=== PATIENT | male | born 1980 | race Caucasian/White ===

== ENCOUNTER 2017-01-24 11:31 | Emergency (ER) | payer MEDICAID, OTHER ==
[2017-01-24 11:53] VITALS: BP 97/51
--- NOTE | 2017-01-24 12:00 | UC ---
Abdominal Pain Male HPI - HPI Summary HPI Summary: SUDDEN ONSET OF TESTICULAR PAIN AND SWELLING LAST NIGHT. NO CHANGE IN ORIENTATION OF THE TESTICLES. PAIN IS WORSE TODAY. HAS DIFFICULTY URINATING AND HAS SHARP CRAMPY LOWER ABDOMINAL PAIN. NO BM IN PAST 3 DAYS. FEELS CONSTIPATED. DENIES FEVER AT HOME. PAIN IS SO SEVERE HE IS HAVING A HARD TIME STANDING UP STRAIGHT. - History of Current Complaint Chief Complaint: UCAbdominalPain Stated Complaint: ABDOMINAL PAIN Time Seen by Provider: 01/24/17 11:57 Hx Obtained From: Patient Onset/Duration: Sudden Onset, Lasting Hours, Still Present Timing: Constant Severity Initially: Moderate Severity Currently: Moderate Pain Intensity: 8 Pain Scale Used: 0-10 Numeric Location: Suprapubic Character: Sharp Alleviating Factor(s): Nothing - Allergies/Home Medications Allergies/Adverse Reactions: Allergies Allergy/AdvReac Type Severity Reaction Status Date / Time No Known Allergies Allergy Verified 01/24/17 11:53 Home Medications: Home Medications NK [No Home Medications Reported] 01/24/17 [History Confirmed 01/24/17] PMH/Surg Hx/FS Hx/Imm Hx Previously Healthy: Yes - Surgical History Surgical History: Yes Surgery Procedure, Year, and Place: Ear tubes x 4 - Family History Known Family History: Positive: Diabetes - Social History Alcohol Use: None Substance Use Type: None Smoking Status (MU): Heavy Every Day Tobacco Smoker Type: Cigarettes Amount Used/How Often: 3/4 ppd Length of Time of Smoking/Using Tobacco: since age 12 Have You Smoked in the Last Year: Yes Review of Systems Constitutional: Negative Respiratory: Negative Cardiovascular: Negative Gastrointestinal: Abdominal Pain Genitourinary: Dysuria, Other - TESTICULAR PAIN All Other Systems Reviewed And Are Negative: Yes Physical Exam Triage Information Reviewed: Yes Appearance: Well-Nourished, Pain Distress - MOD/SEVERE Vital Signs: Initial Vital Signs Temp 99.7 F 01/24/17 11:47 Pulse 79 01/24/17 11:47 Resp 18 01/24/17 11:47 BP 97/51 01/24/17 11:47 Pulse Ox 100 01/24/17 11:47 Vital Signs Reviewed: Yes Eyes: Positive: Conjunctiva Clear ENT: Positive: Hearing grossly normal Neck: Positive: Supple, Nontender, No Lymphadenopathy Respiratory: Positive: No respiratory distress, No accessory muscle use Cardiovascular: Positive: Pulses Normal Abdomen Description: Positive: Soft Musculoskeletal: Positive: No Edema Neurological: Positive: Alert Psychological: Positive: Age Appropriate Behavior Skin: Negative: rashes UC Physical Exam Vital Signs On Initial Exam: Initial Vitals Temp Pulse Resp BP Pulse Ox 99.7 F 79 18 97/51 100 01/24/17 11:47 01/24/17 11:47 01/24/17 11:47 01/24/17 11:47 01/24/17 11:47 - Genitalia Exam Male Genitalia Cont.: Bilateral: Testicles Descended, Testicles Tender - VERY TENDER POSTERIORLY, Scrotum Without Erythema Abd Pain Male Course/Dx - Course Course Of Treatment: PT IS DOUBLED OVER DUE TO ABDOMINAL PAIN. ADVISED FURTHER EVAL IN ER. PT DECLINES AMBULANCE. PT ALSO WILL NEED EVAL OF TESTICULAR PAIN AND URINARY HESITANCY. - Differential Dx/Clinical Impression Provider Diagnoses: 1. TESTICULAR PAIN. 2. ABDOMINAL PAIN Discharge - Discharge Plan Condition: Stable Disposition: OTHER Discharge Disposition Comment: TO [facility] PR[facility] Patient Education Materials: Testicle Pain (ED), Abdominal Pain (ED) Referrals: Ludwig Carmen MD [Primary Care Provider] - If Needed Additional Instructions: GO DIRECTLY TO THE ER FROM HERE FOR FURTHER EVALUATION.
== END 2017-01-24 12:00 ==
LOC: UCEAST 11:31
DX: N50.819 Testicular pain, unspecified (principal); F17.210 Nicotine dependence, cigarettes, uncomplicated
CPT/HCPCS: 99212; G0463

== ENCOUNTER 2017-01-24 23:45 | Emergency (ER) | payer MEDICAID ==
[2017-01-25] MEDS ORDERED: NS 0.9% 1000 ML* 1,000 ML IV ONE (00:21)
[2017-01-25] MEDS ORDERED: Ondansetron INJ* 2 MG/ML VIAL IV ONE (00:21)
[2017-01-25] MEDS ORDERED: HYDROmorphone INJ* 1 MG/ML CARPUJECT SYRINGE IV ONE (00:21)
[2017-01-25 01:19] LABS: Albumin 4.2 g/dL (3.2-5.2); BUN/Creatinine Ratio 8.5 (8-20); C Reactive Protein 6.22 mg/L (< 5.00); Calcium 9.3 mg/dL (8.6-10.3); EGFR African American 102.9 (>60); Globulin 2.6 g/dL (2-4); Hematocrit 45 % (42-52); Hemoglobin 15.3 g/dl (14.0-18.0); Mean Corpuscular HGB Conc 34 g/dl (31-36); Mean Corpuscular Hemoglobin 30 pg (27-31); Mean Corpuscular Volume 88 fL (80-94); Mean Platelet Volume 7 um3 (7.4-10.4); Potassium 3.7 mmol/L (3.5-5.0); Red Blood Count 5.11 10^6/ul (4.0-5.4); Red Cell Distribution Width 15 % (10.5-15); Total Bilirubin 0.6 mg/dL (0.2-1.0); Total Protein 6.8 g/dL (6.4-8.9); White Blood Count 7.6 10^3/ul (3.5-10.8)
[2017-01-25 03:19] LABS: Urine Bilirubin Negative (Negative); Urine Glucose Negative (Negative); Urine Nitrite Negative (Negative)
[2017-01-25] MEDS ORDERED: Lidocaine 2% VISCOUS* 15 ML UDC PO ONE (03:54)
[2017-01-25] MEDS ORDERED: Al Hydrox/Mg Hydrox/Simet LIQ* 30 ML UDC PO ONE (03:54)
[2017-01-25] MEDS ORDERED: HYDROcodone/ACETAMIN 5-325 MG* 1 TAB PO ONE (04:17)
[2017-01-25] MEDS ORDERED: cefTRIAXone VIAL(*) 1,000 MG VIAL IM ONE (04:17)
[2017-01-25] MEDS ORDERED: DOXYcycline CAP(*) 100 MG PO ONE (04:17)
--- NOTE | 2017-01-25 04:23 | ED ---
Ashkan Bowers Alfonso, scribed for Eleanor Gutiérrez MD on 01/25/17 at 0024 . Abdominal Pain/Male - HPI Summary HPI Summary: This patient is a 36 year old M [facility] [place] female with a chief complaint of abdominal cramping since last night. The patient rates the pain 8/10 in severity. Symptoms aggravated by nothing. Symptoms alleviated by a BM. Patient reports testicular pain (soreness), and constipation (5 days). Patient denies back pain. Tobacco abuse disorder. - History of Current Complaint Chief Complaint: EDUrogenitalProblems Stated Complaint: ABD PAIN/TESTICLE PAIN Hx Obtained From: Patient Onset/Duration: Sudden Onset, Lasting Days, Still Present Timing: Constant Severity Currently: Moderate Pain Intensity: 8 Pain Scale Used: 0-10 Numeric Character: Cramping Aggravating Factor(s): Nothing Alleviating Factor(s): Bowel Movement Associated Signs And Symptoms: Positive: Other - testicular pain (soreness), and constipation (5 days). Patient denies back pain - Allergies/Home Medications Allergies/Adverse Reactions: Allergies Allergy/AdvReac Type Severity Reaction Status Date / Time No Known Allergies Allergy Verified 01/25/17 00:07 PMH/Surg Hx/FS Hx/Imm Hx Opthamlomology History: Denies: Hx Legally Blind EENT History: Denies: Hx Deafness - Surgical History Surgery Procedure, Year, and Place: Ear tubes x 4 Infectious Disease History: No Infectious Disease History: Denies: Traveled Outside the [place] in Last 30 Days - Family History Known Family History: Positive: Diabetes - Social History Alcohol Use: None Substance Use Type: Reports: None Smoking Status (MU): Heavy Every Day Tobacco Smoker Type: Cigarettes Amount Used/How Often: 3/4 ppd Length of Time of Smoking/Using Tobacco: since age 12 Have You Smoked in the Last Year: Yes Review of Systems Positive: Abdominal Pain, Other - constipation Positive: other - testicular pain (soreness) Positive: Other - Negative back pain All Other Systems Reviewed And Are Negative: Yes Physical Exam - Summary Physical Exam Summary: General: Well appearing, no pain distress Skin: Warm, Skin Color Reflects Adequate Perfusion, Dry Eyes: EOMI, JACQUELINE ENT: Pharynx normal, TMs normal Neck: Supple, nontender Respiratory: CTA, breath sounds present, no rhonchi, no wheezes, no rales Cardiovascular: RRR, no murmur, no rub, no gallop Abdomen: Soft, nontender, Non-distended, no guarding, no rebound Pelvis: Right epididymis discomfort. Bowel: Present Musculoskeletal: AYAN, No edema Neuro: Sensory/motor intact, A&Ox3, CN intact 2-12 Psych: Affect/mood appropriate Triage Information Reviewed: Yes Vital Signs On Initial Exam: Initial Vitals Temp Pulse Resp BP Pulse Ox 98.4 F 101 20 155/113 96 01/25/17 00:03 01/25/17 00:03 01/25/17 00:03 01/25/17 00:03 01/25/17 00:03 Vital Signs Reviewed: Yes Diagnostics - Vital Signs Vital Signs Temp Pulse Resp BP Pulse Ox 01/25/17 00:03 98.4 F 101 20 155/113 96 - Laboratory Lab Results: Lab Results 01/25/17 01/25/17 01/25/17 Range/Units 00:48 00:48 00:48 WBC 7.6 (3.5-10.8) 10^3/ul RBC 5.11 (4.0-5.4) 10^6/ul Hgb 15.3 (14.0-18.0) g/dl Hct 45 (42-52) % MCV 88 (80-94) fL MCH 30 (27-31) pg MCHC 34 (31-36) g/dl RDW 15 (10.5-15) % Plt Count 300 (150-450) 10^3/ul MPV 7 L (7.4-10.4) um3 Neut % (Auto) 57.2 (38-83) % Lymph % (Auto) 25.1 (25-47) % [place] % (Auto) 13.1 H (1-9) % Eos % (Auto) 3.3 (0-6) % Baso % (Auto) 1.3 (0-2) % Absolute Neuts (auto) 4.3 (1.5-7.7) 10^3/ul Absolute Lymphs (auto) 1.9 (1.0-4.8) 10^3/ul Absolute Monos (auto) 1.0 H (0-0.8) 10^3/ul Absolute Eos (auto) 0.2 (0-0.6) 10^3/ul Absolute Basos (auto) 0.1 (0-0.2) 10^3/ul Absolute Nucleated RBC 0.01 10^3/ul Nucleated RBC % 0.1 Sodium 133 (133-145) mmol/L Potassium 3.7 (3.5-5.0) mmol/L Chloride 102 (101-111) mmol/L Carbon Dioxide 24 (22-32) mmol/L Anion Gap 7 (2-11) mmol/L BUN 9 (6-24) mg/dL Creatinine 1.06 (0.67-1.17) mg/dL Est GFR ( Amer) 102.9 (>60) Est GFR (Non-Af Amer) 80.0 (>60) BUN/Creatinine Ratio 8.5 (8-20) Glucose 103 H (70-100) mg/dL Lactic Acid 0.9 (0.5-2.0) mmol/L Calcium 9.3 (8.6-10.3) mg/dL Total Bilirubin 0.60 (0.2-1.0) mg/dL AST 19 (13-39) U/L ALT 16 (7-52) U/L Alkaline Phosphatase 51 (34-104) U/L C-Reactive Protein 6.22 H (< 5.00) mg/L Total Protein 6.8 (6.4-8.9) g/dL Albumin 4.2 (3.2-5.2) g/dL Globulin 2.6 (2-4) g/dL Albumin/Globulin Ratio 1.6 (1-3) Lipase 14 (11.0-82.0) U/L Urine Color Urine Appearance Urine pH (5-9) Ur Specific [place] (1.010-1.030) Urine Protein (Negative) Urine Ketones (Negative) Urine Blood (Negative) Urine Nitrate (Negative) Urine Bilirubin (Negative) Urine Urobilinogen (Negative) Ur Leukocyte Esterase (Negative) Urine Glucose (Negative) 01/25/17 Range/Units 03:00 WBC (3.5-10.8) 10^3/ul RBC (4.0-5.4) 10^6/ul Hgb (14.0-18.0) g/dl Hct (42-52) % MCV (80-94) fL MCH (27-31) pg MCHC (31-36) g/dl RDW (10.5-15) % Plt Count (150-450) 10^3/ul MPV (7.4-10.4) um3 Neut % (Auto) (38-83) % Lymph % (Auto) (25-47) % [place] % (Auto) (1-9) % Eos % (Auto) (0-6) % Baso % (Auto) (0-2) % Absolute Neuts (auto) (1.5-7.7) 10^3/ul Absolute Lymphs (auto) (1.0-4.8) 10^3/ul Absolute Monos (auto) (0-0.8) 10^3/ul Absolute Eos (auto) (0-0.6) 10^3/ul Absolute Basos (auto) (0-0.2) 10^3/ul Absolute Nucleated RBC 10^3/ul Nucleated RBC % Sodium (133-145) mmol/L Potassium (3.5-5.0) mmol/L Chloride (101-111) mmol/L Carbon Dioxide (22-32) mmol/L Anion Gap (2-11) mmol/L BUN (6-24) mg/dL Creatinine (0.67-1.17) mg/dL Est GFR ( Amer) (>60) Est GFR (Non-Af Amer) (>60) BUN/Creatinine Ratio (8-20) Glucose (70-100) mg/dL Lactic Acid (0.5-2.0) mmol/L Calcium (8.6-10.3) mg/dL Total Bilirubin (0.2-1.0) mg/dL AST (13-39) U/L ALT (7-52) U/L Alkaline Phosphatase (34-104) U/L C-Reactive Protein (< 5.00) mg/L Total Protein (6.4-8.9) g/dL Albumin (3.2-5.2) g/dL Globulin (2-4) g/dL Albumin/Globulin Ratio (1-3) Lipase (11.0-82.0) U/L Urine Color Yellow Urine Appearance Cloudy Urine pH 6.0 (5-9) Ur Specific [place] 1.009 L (1.010-1.030) Urine Protein Negative (Negative) Urine Ketones Negative (Negative) Urine Blood Negative (Negative) Urine Nitrate Negative (Negative) Urine Bilirubin Negative (Negative) Urine Urobilinogen Negative (Negative) Ur Leukocyte Esterase Negative (Negative) Urine Glucose Negative (Negative) Result Diagrams: 01/25/17 00:48 01/25/17 00:48 Lab Statement: Any lab studies that have been ordered have been reviewed, and results considered in the medical decision making process. - Additional Comments Diagnostic Additional Comments: US scrotum reveals, per radiologist, Right testicle and epididymis are normal and homogeneous without evidence of lesion. There is positive Doppler blood flow to the right testicle. The left testicle and epididymis are normal and homogeneous without evidence of lesion. There is positive Doppler blood flow to the left testicle. Small left hydrocele noted. ED physician has reviewed this radiology report and agrees. Abdominal Pain Fem Course/Dx - Course Course Of Treatment: 36 yo male with left testicular pain after 5 days of constipation. pain started today as non specific pelvic and periumbilical pain he was seen at urgent care and started on a laxative after 2nd bowel movement pain that had started to be testicular became very localized over the area. he is very ttp over the epididymitis and the rest of his abd exam is benign with out any signs of hernia or hernia into scrotum. He is being treated for epididymitis and abd pain and will have close f/u with urology and his pmd - Diagnoses Provider Diagnoses: Epididymitis, Abdominal pain Discharge - Discharge Plan Condition: Stable Disposition: HOME Prescriptions: DOXYcycline CAP(*) [DOXYcycline 100MG CAP(*)] 100 mg PO BID #20 cap HYDROcodone/ACETAMIN 5-325 MG* [[place] 5-325 TAB*] 2 tab PO Q8H PRN #18 tab MDD 6 PRN Reason: Pain Patient Education Materials: Epididymitis (ED), Acute Abdominal Pain (ED), Testicle Pain (ED) Referrals: Ludwig Carmen MD [Primary Care Provider] - 3 Days Dionte Ayala MD [Medical Doctor] - 3 Days Additional Instructions: RETURN TO THE EMERGENCY DEPARTMENT FOR CHANGING OR WORSENING SYMPTOMS. The documentation as recorded by the Ashkan gonzalez Alfonso accurately reflects the service I personally performed and the decisions made by me, Eleanor Gutiérrez MD.
[2017-01-25] MEDS ORDERED: Sterile Water for Inj* 10 ML ONE (04:34)
[2017-01-25 04:49] VITALS: BP 139/91
--- NOTE | 2017-01-25 08:13 | RAD ---
HISTORY: Right testicular pain COMPARISONS: None TECHNIQUE: Multiple transverse and longitudinal ultrasound images were obtained of the scrotum, using grayscale, color Doppler, and spectral Doppler imaging. FINDINGS: RIGHT: RIGHT TESTICLE: The right testicle measures 4.9 x 2.8 x 3.5 cm. The right testicle is homogeneous in echotexture, without testicular parenchymal mass. Normal arterial and venous waveforms are identified within the right testicle on spectral Doppler imaging. RIGHT EPIDIDYMIS: The right epididymis measures 1.5 cm at the head. RIGHT SCROTUM: There is no hydrocele or varicocele. LEFT: LEFT TESTICLE: The left testicle measures 5.1 x 2.5 x 3.4 cm. The left testicle is homogeneous in echotexture, without testicular parenchymal mass. Normal arterial and venous waveforms are identified within the left testicle on spectral Doppler imaging. LEFT EPIDIDYMIS: The left epididymis measures 1.3 cm at the head. LEFT SCROTUM: There is a small left hydrocele. There is no varicocele. OTHER: None IMPRESSION: 1. NO TESTICULAR PARENCHYMAL MASS. 2. NO SONOGRAPHIC FEATURES OF TORSION. PLEASE NOTE THAT PARTIAL OR INTERMITTENT TORSION MAY BE SONOGRAPHICALLY NORMAL. 3. SMALL LEFT HYDROCELE
== END 2017-01-25 04:51 | disposition home or self-care (01) ==
LOC: ED 23:45
DX: N45.1 Epididymitis (principal); R10.9 Unspecified abdominal pain; N50.819 Testicular pain, unspecified; F17.210 Nicotine dependence, cigarettes, uncomplicated
CPT/HCPCS: 36415; 76870; 80053; 81003; 83605; 83690; 85025; 86140; 96374; 96375; 99285; A9270-GY; J0696; J1170; J2405

== ENCOUNTER 2018-05-15 13:59 | Emergency (ER) | payer SELFPAY ==
[2018-05-15 14:11] VITALS: BP 104/74
--- NOTE | 2018-05-15 14:14 | UC ---
Abdominal Pain Male HPI - HPI Summary HPI Summary: 38 y/o male presents the urgent care c/o cramping abdominal pain w/ diarrhea and vomiting since Sunday05/12/2018. Pt states symptoms started w/ a common cold and the nausea and vomiting developed w/ 4 episodes/day. Vomiting resolved yesterday. Then diarrhea developed Sunday which still present w/ a bloating feeling. Pt reports abdominal cramping pain is relief w/ BM. 5 episodes of watery diarrhea/ day. Pain in mild 08/07. Diarrhea has decrease today. He has drinking fluid and has decrease appetite. Pt denies fever, blood in the stool, dizziness, SOB, chest pain, CALVIN or rash, No Hx of recent travel. - History of Current Complaint Chief Complaint: UCAbdominalPain Stated Complaint: ABDOMINAL PAIN Time Seen by Provider: 05/15/18 14:13 Hx Obtained From: Patient Onset/Duration: Gradual Onset, Lasting Days - 3 days, Still Present Severity Initially: Mild Severity Currently: Mild Pain Intensity: 4 Pain Scale Used: 0-10 Numeric Location: Diffuse - cramping Radiates: No Character: Cramping - relief w/ BM Alleviating Factor(s): Rest, Spontaneous Resolution - of vomiting Associated Signs And Symptoms: Positive: Decreased Appetite, Vomiting - resolved yesterday, Diarrhea. Negative: Diaphoresis, Fever, Cough, Chest Pain, Dizzy, Back Pain, Constipation, Blood in Stool, Urinary Symptoms, Penile Discharge - Allergies/Home Medications Allergies/Adverse Reactions: Allergies Allergy/AdvReac Type Severity Reaction Status Date / Time No Known Allergies Allergy Verified 01/25/17 00:07 PMH/Surg Hx/FS Hx/Imm Hx Previously Healthy: Yes - Pt denies PMHX - Surgical History Surgical History: Yes Surgery Procedure, Year, and Place: Ear tubes x 4 - Family History Known Family History: Positive: Hypertension, Diabetes - Social History Occupation: Employed Full-time Lives: With Family Alcohol Use: None Substance Use Type: None Smoking Status (MU): Heavy Every Day Tobacco Smoker Type: Cigarettes Amount Used/How Often: 3/4 ppd Length of Time of Smoking/Using Tobacco: since age 12 Have You Smoked in the Last Year: Yes Household Exposure Type: Cigarettes Review of Systems All Other Systems Reviewed And Are Negative: Yes Constitutional: Positive: Negative Skin: Positive: Negative Eyes: Positive: Negative ENT: Positive: Negative Respiratory: Positive: Negative Cardiovascular: Positive: Negative Gastrointestinal: Positive: Abdominal Pain - cramping pain relief w/ a BM, Vomiting - resolved yesterday, Diarrhea, Nausea Genitourinary: Positive: Negative Motor: Positive: Negative Neurovascular: Positive: Negative Musculoskeletal: Positive: Negative Neurological: Positive: Negative Psychological: Positive: Negative Is Patient Immunocompromised?: No Physical Exam - Summary Physical Exam Summary: Vital Signs Reviewed: Yes General:Patient is a well developed and nourished male who is sitting comfortable in the examining table. Patient is not in any acute respiratory distress. Eyes: Positive: Conjunctiva Clear - PERRLA, EOMI, fundi grossly normal ENT: Positive: Normal ENT inspection, Hearing grossly normal, Pharynx normal, TMs normal Neck: Positive: Supple, Nontender, No Lymphadenopathy Respiratory: Positive: Chest non-tender, Lungs clear, Normal breath sounds, No respiratory distress Cardiovascular: Positive: RRR,S1 and S2 present, No Murmur, Pulses Normal, Brisk Capillary Refill Abdomen Description: Positive: Nontender, Abd: Flat with no distention. No surface trauma, scars, incisions. hyperactive bowel sounds present in all four quadrants. No tenderness, guarding, rigidity to palpation. No masses palpated, no pulsation in epigastric area. No organomegaly. Negative Leckrone signs. No periumbilical tenderness. No rebound in the lower quadrants. NT over McBurneys point. Good femoral pulses bilaterally. No hernia noted. No CVAT bilaterally Musculoskeletal: Positive: Strength Intact, ROM Intact, No Edema,FROM in all major joints, no edema, no cyanosis or clubbing. Neuro: Alert and oriented x 3. No acute neurological deficits. Speech is normal. Psychological: WNL Skin: Dry and warm Triage Information Reviewed: Yes Vital Signs: Initial Vital Signs Temp 98.3 F 05/15/18 14:05 Pulse 75 05/15/18 14:05 Resp 16 05/15/18 14:05 BP 104/74 05/15/18 14:05 Pulse Ox 100 05/15/18 14:05 Abd Pain Male Course/Dx - Course Course Of Treatment: 38 y/o male presents the urgent care c/o cramping abdominal pain w/ diarrhea and vomiting since Sunday05/12/2018. Pt states symptoms started w/ a common cold and the nausea and vomiting developed w/ 4 episodes/day. Vomiting resolved yesterday. Then diarrhea developed Sunday which still present w/ a bloating feeling. Pt reports abdominal cramping pain is relief w/ BM. 5 episodes of watery diarrhea/ day. Pain in mild 08/07. Diarrhea has decrease today. He has drinking fluid and has decrease appetite. Pt denies fever, blood in the stool, dizziness, SOB, chest pain, CALVIN or rash, No Hx of recent travel. Hx obtained. PE: WNL. Pt is hemodynamically stable. Pt most likely w/ a viral gastroenteritis. Pt was uneble to collect stool here at the clinic. Pt advised to bring back the stool, educated in how to do it. Stool culture ordered, O&P, Lactoferrin. E.Coli also ordered. Pt will be notify of the results for further treatment. Pt Rx Loperamide to alleviate Diarrhea and Zofran PO just if Vomiting returns. Advised to increase fluid intake, eat soft meals, and rest. If Symptoms worsen to go immediately to the ER for further management. Otherwise f/u with PCP if not complete resolution of further management in your diarrhea. Pt understood and agreed with plan of care. Left the clinic ambulating. - Differential Dx/Clinical Impression Differential Diagnosis/HQI/PQRI: Appendicitis, Constipation, Renal Colic, Other - gastroenteritis Provider Diagnosis: Gastroenteritis and colitis, viral Discharge - Sign-Out/Discharge Documenting (check all that apply): Patient Departure - D/C home All imaging exams completed and their final reports reviewed: No Studies - Discharge Plan Condition: Stable Disposition: HOME Prescriptions: Loperamide CAP* [Imodium CAP*] 2 mg PO Q4H PRN #12 cap PRN Reason: Diarrhea Ondansetron ODT TAB* [Zofran 4 MG Odt TAB*] 4 mg PO Q6H PRN #12 tab.odt PRN Reason: Vomiting Patient Education Materials: Gastroenteritis (ED) Referrals: Ludwig Carmen MD [Primary Care Provider] - 2 Days Additional Instructions: 1- Please increase fluid intake. Take Pedialyte OTC or Gatorade to increase hydration, eat soft meals and small portions, rest, avoid any strenuous exercise 2- Please Take Zofran PO as directed to alleviate nausea sdn vomiting. 3- Please bring back a stool sample as directed to sent to lab to r/o any abnormality. Please if diarrhea persists please Take Loperamide PO as directed to alleviate symptoms. 4- If you develops fever or abdominal pain w/ recurrent episodes of diarrhea please go to the ER, otherwise f/u with your PCP if diarrhea not resolving in 2- 3 days - Billing Disposition and Condition Condition: STABLE Disposition: Home
== END 2018-05-15 14:50 | disposition home or self-care (01) ==
LOC: UCEAST 13:59
DX: A08.4 Viral intestinal infection, unspecified (principal); F17.210 Nicotine dependence, cigarettes, uncomplicated
CPT/HCPCS: 99212; G0463